=== PATIENT | female | born 1980 | race Native Hawaiian/Other Pacific Islander ===

== ENCOUNTER 2019-01-09 11:09 | Day surgery (SDC) | payer MEDICAID ==
[~2019-01-09 11:09] MED LIST: LACTATED RINGERS 1,000 ML IV SCH
[2019-01-09] MEDS ORDERED: PEPCID IV ONE (12:00)
--- NOTE | 2019-01-09 13:23 | Anesthesia Consultation ---
Anesthesia Consult and Med Hx Date of service: 01/09/19 - Airway Anesthetic Teeth Evaluation: Good ROM Head & Neck: Adequate Mental/Hyoid Distance: Adequate Mallampati Class: Class II Intubation Access Assessment: Good - Pulmonary Exam CTA: Yes - Cardiac Exam Cardiac Exam: No Murmur - Pre-Operative Health Status ASA Pre-Surgery Classification: ASA1 Proposed Anesthetic Plan: General - Pulmonary Hx Asthma: No COPD: No Hx Pneumonia: No - Cardiovascular System Hx Hypertension: No Hx Coronary Artery Disease: No Hx Heart Attack/AMI: No Hx Angina: No - Central Nervous System Hx Seizures: No Hx Psychiatric Problems: No - Endocrine Hx Renal Disease: No Hx End Stage Renal Disease: No Hx Hypothyroidism: No Hx Hyperthyroidism: No - Hematic Hx Anemia: No Hx Sickle Cell Disease: No - Other Systems Hx Alcohol Use: Yes (occas) Hx Cancer: No
--- NOTE | 2019-01-09 13:24 | Anesthesia Day of Surgery ---
Anesthesia Day of Surgery - Day of Surgery Patient Examined: Yes Patient H&P Reviewed: Yes Patient is NPO: Yes
[2019-01-09] MEDS ORDERED: DILAUDID ONE (14:26)
[2019-01-09] MEDS ORDERED: DIPRIVAN 10 MG/ML IV ONE (14:26)
[2019-01-09] MEDS ORDERED: XYLOCAINE MPF 2% ONE (14:27)
[2019-01-09] MEDS ORDERED: MONSEL'S TP ONE ×2 (14:30→14:38)
[2019-01-09] MEDS ORDERED: NACL 0.9% IR ONE (14:30)
[2019-01-09] MEDS ORDERED: LUGOL'S SOLUTION 5% TP ONE ×2 (14:30→14:38)
[2019-01-09] MEDS ORDERED: XYLOCAINE 1% 20 mL ONE (14:38)
[2019-01-09] MEDS ORDERED: ACETIC ACID 3% SOLN TP ONE (14:38)
[2019-01-09] MEDS ORDERED: ZOFRAN ONE (15:11)
[2019-01-09] MEDS ORDERED: TORADOL ONE (15:12)
--- NOTE | 2019-01-09 15:50 | Operative Report ---
Operative Report Operative Report: Preoperative diagnosis: Mod-severe cervical dysplasia. Postoperative diagnosis: same. Procedure: LEEP of the crevix. Surgeon: Dr. Newman. Implementation Specialist Payroll: none Anesthesia: IV sedation EBL: none IVF: RL 1 liter. Procedure details: Risks, benefits, and alternatives of the procedure were discussed in detail with the patient which included but not limited to the risk of infection, hemorrhage requiring blood transfusion, shortened cervix which can result in cervical incompetence and the need for cerclage in future pregnancies. The patient expressed understanding, her questions were answered, and she gave informed consent. The patient was taken to the operating room with an IV fluid infusing ringers lactate. In the operating room, she was placed in a dorsal supine position and given IV sedation with MAC. Then, she was placed on the stirrups in the dorsolithotomy position. The perineum, vagina and cervix were washed and she was prepared and draped in usual sterile fashion. A weighted speculum was placed under posterior vaginal wall. Lugol's solution was applied to the cervix. The dysplastic area were visible. The cautery was used to perform the LEEP procedure and the specimen was sent to pathology. The base of the cervix was cauterized using the Bovie. Monsel's solution was applied. The counts of laps, needles, sponges, and instruments were correct 2. The patient tolerated the procedure well. She was awakened from the anesthesia and taken to the recovery room in a stable condition.
[2019-01-09] MEDS ORDERED: NORCO 5/325 PO ONE (16:10)
[2019-01-09 16:12] VITALS: BP 114/78
== END 2019-01-09 16:55 | disposition home or self-care (01) ==
LOC: OR 11:09
PROVIDERS: ATTEND Obstetrics & Gynecology
DX: N87.1 Moderate cervical dysplasia (principal); Z79.899 Other long term (current) drug therapy; Z72.89 Other problems related to lifestyle; Z98.890 Other specified postprocedural states
CPT/HCPCS: 57522; 81025; 88307; J1170; J1885; J2405; J2704

== ENCOUNTER 2022-03-29 01:57 | Emergency (ER) | payer SELFPAY ==
[2022-03-29] MEDS ORDERED: ASPIRIN 325 MG TAB PO ONE (02:22)
[2022-03-29 02:48] LABS: Basophils # (Auto) 0.1 K/mm3 (0.0-0.1); Basophils % (Auto) 0.7 % (0.0-1.8); Eosinophils # (Auto) 0.1 K/mm3 (0.0-0.4); Eosinophils % (Auto) 0.7 % (0.0-4.3); Hematocrit 38.6 % (30.3-42.9); Lymphocytes # (Auto) 1.3 K/mm3 (1.2-5.4); Lymphocytes % (Auto) 12.7 % (13.4-35.0); Mean Corpuscular HGB Conc 34 % (30-34); Mean Corpuscular Volume 78 fl (79-97); Monocytes # (Auto) 0.5 K/mm3 (0.0-0.8); Monocytes % (Auto) 5.1 % (0.0-7.3); Platelet Count 374 K/mm3 (140-440); Red Blood Count 4.98 M/mm3 (3.65-5.03); Red Cell Distribution Width 15.1 % (13.2-15.2)
[2022-03-29 03:06] LABS: Alanine Aminotransferase 16 units/L (7-56); Albumin 4.5 g/dL (3.9-5); Blood Urea Nitrogen 9 mg/dL (7-17); Calcium 9.5 mg/dL (8.4-10.2); Hemolysis Index 16
[2022-03-29 03:19] LABS: BUN/Creatinine Ratio 13
--- NOTE | 2022-03-29 04:34 | XRay Report ---
CHEST 2 VIEWS INDICATION / CLINICAL INFORMATION: chest pain. COMPARISON: None available. FINDINGS: SUPPORT DEVICES: None. HEART / MEDIASTINUM: No significant abnormality. LUNGS / PLEURA: No significant pulmonary or pleural abnormality. No pneumothorax. ADDITIONAL FINDINGS: No significant additional findings. IMPRESSION: 1. No acute findings. Signer Name: Nawaf Eddy DO Signed: 03/29/2022 4:29 AM Workstation Name: [id number]
[2022-03-29] MEDS ORDERED: dexAMETHasone 4 MG/ML VIAL PO ONE (09:14)
[2022-03-29] MEDS ORDERED: BUTALB/ACETAMINOPHEN/CAFFEINE TAB PO ONE (09:14)
--- NOTE | 2022-03-29 10:17 | Emergency Department Report ---
ED Chest Pain HPI - General Chief Complaint: Chest Pain Stated Complaint: HEADACHE/PRESSURE ON CHEST Time Seen by Provider: 03/29/22 08:42 Source: patient Mode of arrival: Ambulatory Limitations: No Limitations - History of Present Illness Initial Comments: 41-year-old female with no past medical history presents to the emergency department for evaluation of 1 day history of midsternal chest pain and headache. She states that chest pain is nonradiating, reproducible, and associated with nausea and vomiting. She denies shortness of breath, dizziness, diaphoresis, and fever. She states that headache feels like pressure to her bilateral eyes but denies vision changes and photophobia. MD Complaint: chest pain -: Sudden, days(s) (1) Pain Location: substernal Pain Radiation: none Severity: mild Severity scale (0 -10): 6 Quality: aching Consistency: constant Worsens With: palpation re: nausea, vomting. denies: diaphoresis, dyspnea, sense of impending doom Other Symptoms: denies: cough, fever, syncope, rash, acid taste in mouth, leg swelling, palpitations, burping Treatments Prior to Arrival: none Aspirin use within the Past 7 Days: (0) No - Related Data On Oral Contraceptives: No Home Medications Medication Instructions Recorded Confirmed Last Taken Magnesium Oxide [Magnesium] 250 mg PO DAILY 01/03/19 01/09/19 01/08/19 16:00 Multivitamin [Multiple Vitamins] 1 each PO DAILY 01/03/19 01/09/19 01/08/19 09:00 Potassium 99 mg PO DAILY 01/03/19 01/09/19 01/08/19 16:00 Previous Rx's Medication Instructions Recorded Last Taken Type Levocetirizine Dihydrochloride 5 mg PO QPM #15 tab 03/29/22 Unknown Rx [Xyzal] methylPREDNISolone [Medrol 4MG 4 mg PO DAILY #1 pack 03/29/22 Unknown Rx DOSEPAK (21 tabs)] Allergies Allergy/AdvReac Type Severity Reaction Status Date / Time No Known Allergies Allergy Verified 03/29/22 02:22 Heart Score - HEART Score History: Slightly suspicious EKG: Normal Age: < 45 Risk factors: 1-2 risk factors Troponin: < normal limit HEART Score: 1 - EKG Read Time Time EKG Completed: 02:16 EKG Read Time: 02:20 - Critical Actions Critical Actions: 0-3 pts:0.9-1.7%risk of adverse cardiac event.Candidate for discharge ED Review of Systems ROS: Stated complaint: HEADACHE/PRESSURE ON CHEST Other details as noted in HPI Comment: All other systems reviewed and negative Constitutional: denies: chills, fever Eyes: denies: vision change ENT: denies: congestion Respiratory: denies: cough, orthopnea, shortness of breath, SOB with exertion, SOB at rest, stridor, wheezing Cardiovascular: chest pain. denies: palpitations, dyspnea on exertion, orthopnea, edema, syncope, paroxysmal nocturnal dyspnea Gastrointestinal: nausea, vomiting. denies: abdominal pain, diarrhea, constipation, hematemesis, melena, hematochezia Genitourinary: denies: urgency, dysuria Musculoskeletal: denies: back pain Skin: denies: rash, lesions Neurological: headache. denies: weakness, numbness, paresthesias, confusion, abnormal gait Psychiatric: denies: anxiety, depression ED Past Medical Hx - Past Medical History Previous Medical History?: No Hx Hypertension: No Hx Heart Attack/AMI: No Hx Congestive Heart Failure: No Hx Diabetes: No Hx Deep Vein Thrombosis: No Hx Renal Disease: No Hx Sickle Cell Disease: No Hx Seizures: No Hx Asthma: No Hx COPD: No Hx HIV: No - Surgical History Past Surgical History?: No - Social History Smoking Status: Never Smoker Substance Use Type: None - Medications Home Medications: Home Medications Medication Instructions Recorded Confirmed Last Taken Type Magnesium Oxide [Magnesium] 250 mg PO DAILY 01/03/19 01/09/19 01/08/19 16:00 History Multivitamin [Multiple Vitamins] 1 each PO DAILY 01/03/19 01/09/19 01/08/19 09:00 History Potassium 99 mg PO DAILY 01/03/19 01/09/19 01/08/19 16:00 History Levocetirizine Dihydrochloride 5 mg PO QPM #15 tab 03/29/22 Unknown Rx [Xyzal] methylPREDNISolone [Medrol 4MG 4 mg PO DAILY #1 pack 03/29/22 Unknown Rx DOSEPAK (21 tabs)] ED Physical Exam - General Limitations: No Limitations General appearance: alert, in no apparent distress - Head Head exam: Present: atraumatic, normocephalic - Eye Eye exam: Present: normal appearance. Absent: conjunctival injection, periorbital swelling, periorbital tenderness - ENT ENT exam: Absent: normal exam (Bilateral nasal mucosal edema and tenderness to frontal sinus area) - Neck Neck exam: Present: normal inspection, full ROM. Absent: tenderness, lymphadenopathy - Respiratory Respiratory exam: Present: normal lung sounds bilaterally, chest wall tenderness. Absent: respiratory distress, wheezes, rales, rhonchi, stridor - Cardiovascular Cardiovascular Exam: Present: regular rate, normal rhythm, normal heart sounds - GI/Abdominal GI/Abdominal exam: Present: soft, normal bowel sounds. Absent: guarding, rebound, rigid - Extremities Exam Extremities exam: Present: normal inspection, normal capillary refill. Absent: pedal edema, joint swelling, calf tenderness - Back Exam Back exam: Present: normal inspection. Absent: CVA tenderness (R), CVA tenderness (L), vertebral tenderness - Neurological Exam Neurological exam: Present: alert, oriented X3, normal gait - Psychiatric Psychiatric exam: Present: normal affect, normal mood - Skin Skin exam: Present: warm, dry, intact, normal color ED Course Vital Signs 03/29/22 02:19 Temperature 98.7 F Pulse Rate 88 Respiratory 18 Rate Blood Pressure 137/84 [Left] O2 Sat by Pulse 99 Oximetry JOELLEN score - Joellen Score Age > 65: (0) No Aspirin use within the Past 7 Days: (0) No 3 or more CAD Risk Factors: (0) No 2 or more Angina events in past 24 hrs: (0) No Known CAD with more than 50% Stenosis: (0) No Elevated Cardiac Markers: (0) No ST Deviation Greater than 0.5mm: (0) No JOELLEN Score: 0 ED Medical Decision Making - Lab Data Result diagrams: 03/29/22 02:36 03/29/22 02:36 - EKG Data EKG shows normal: sinus rhythm Rate: normal - EKG Data Interpretation: no acute changes, normal EKG - Radiology Data Radiology results: report reviewed, image reviewed Chest x-ray: FINDINGS: SUPPORT DEVICES: None. HEART / MEDIASTINUM: No significant abnormality. LUNGS / PLEURA: No significant pulmonary or pleural abnormality. No pneumothorax. ADDITIONAL FINDINGS: No significant additional findings. IMPRESSION: 1. No acute findings. - Medical Decision Making 41-year-old female with no past medical history presents to the emergency department for evaluation of 1 day history of midsternal chest pain and headache. She states that chest pain is nonradiating, reproducible, and associated with nausea and vomiting. She denies shortness of breath, dizziness, diaphoresis, and fever. She states that headache feels like pressure to her bilateral eyes but denies vision changes and photophobia. Physical exam unremarkable. EKG without any acute ischemic changes noted, troponin within normal limits x2, chest x-ray without any acute abnormalities noted, chest pain worse with palpation, and heart score of 1. Low suspicion for ACS. Headache secondary to sinusitis type symptoms. Patient be discharged home with Medrol Dosepak to use for chest wall tenderness and sinusitis type symptoms. She is advised to take medications as prescribed and follow-up with her primary care provider or cardiology for further evaluation and management. She is advised to return to the emergency department for worsening symptoms or any concerning symptoms. She verbalizes understanding of and agreement with plan of care. Critical care attestation.: If time is entered above; I have spent that time in minutes in the direct care of this critically ill patient, excluding procedure time. ED Disposition Clinical Impression: Chest wall pain Sinusitis Qualifiers: Sinusitis location: frontal Chronicity: acute Recurrence: non-recurrent Qualified Code(s): J01.10 - Acute frontal sinusitis, unspecified Disposition: 01 HOME / SELF CARE / HOMELESS Is pt being admited?: No Does the pt Need Aspirin: No Condition: Stable Instructions: Sinusitis, Adult, [id number], Nonspecific Chest Pain, Adult, [id number], Chest Wall Pain, [id number] Additional Instructions: Take medications as prescribed. Follow-up with your primary care provider or heart doctor for further evaluation and management. Return to the emergency department for any worsening or concerning symptom. Prescriptions: methylPREDNISolone [Medrol 4MG DOSEPAK (21 tabs)] 4 mg PO DAILY #1 pack Levocetirizine Dihydrochloride [Xyzal] 5 mg PO QPM #15 tab Referrals: SHANE CHRISTENSEN MD [Staff Physician] - 3-5 Days KATHERINE ENG MD [Staff Physician] - 3-5 Days Forms: Work/School Release Form(ED) Time of Disposition: 10:28 Print Language: KENYAN
[2022-03-29 11:06] VITALS: BP 138/74
--- NOTE | 2022-03-30 10:43 | Electrocardiograph Report ---
[facility] Test Date: 2022-03-29 Test Time: 02:16:13 Pat Name: JOSE CONTEH Department: Room: Gender: F Film Editor: NARINDER : 1980 Requested By: ED DOC Order Number: [id number] Reading MD: Danielle Ernandez Measurements Intervals [place] Rate: 88 P: 49 MD: 153 QRS: 23 QRSD: 87 T: 24 QT: 357 QTc: 432 Interpretive Statements Sinus rhythm No previous ECG available for comparison Electronically Signed On 03-30-2022 10:43:34 EDT by Danielle Ernandez
== END 2022-03-29 11:05 | disposition home or self-care (01) ==
LOC: ED 01:57
DX: R07.9 Chest pain, unspecified (principal); J32.9 Chronic sinusitis, unspecified
CPT/HCPCS: 36415; 71046; 80053; 84484; 84702; 85025; 93005; 99284; J1100